=== PATIENT | female | born 1990 | race African-American/Black ===

== ENCOUNTER 2022-01-06 23:46 | Emergency (ER) | payer OTHER ==
[~2022-01-06] VITALS: Ht 160 cm; Wt 77.3 kg
[2022-01-06] MEDS ORDERED: KURV0.15 PO (23:54)
[2022-01-07 01:30] VITALS: BP 120/75
== END 2022-01-07 02:13 | disposition home or self-care (01) ==
LOC: M ED 23:46
DX: S93.402A Sprain of unspecified ligament of left ankle, initial encounter (principal); X58.XXXA Exposure to other specified factors, initial encounter; Y92.018 Other place in single-family (private) house as the place of occurrence of the external cause; Z79.3 Long term (current) use of hormonal contraceptives